=== PATIENT | male | born 1995 | race Hispanic/Latino ===

== ENCOUNTER 2021-06-12 03:37 | Emergency (ER) | payer SELFPAY ==
[2021-06-12 03:49] LABS: Urine Blood Negative (Negative); Urine Glucose Negative (Negative); Urine Protein Negative (Negative); Urine Specific Gravity <=1.005 (1.005-1.030)
[2021-06-12] MEDS ORDERED: NA CHLORIDE 0.9% 1,000 ML ONE (03:56)
[2021-06-12] MEDS ORDERED: ONDANSETRON 4 MG/2 ML VIAL ONE (03:57)
[2021-06-12 04:01] LABS: Absolute Lymphocytes (CBC) 2.1 K/uL (0.7-4.9); Hematocrit 42.3 % (39.6-49.0); Lymphocytes % 20.4 % (15.3-44.8); RBC Red Blood Cell Count 4.87 M/uL (4.33-5.43)
[2021-06-12 04:08] LABS: Barbiturates NEGATIVE (NEGATIVE); Benzodiazepines NEGATIVE (NEGATIVE); Cocaine NEGATIVE (NEGATIVE); METHAMPHETAM NEGATIVE (NEGATIVE); Methadone NEGATIVE (NEGATIVE); Opiates NEGATIVE (NEGATIVE); Phencyclidine NEGATIVE (NEGATIVE); THC Cannibis NEGATIVE (NEGATIVE)
[2021-06-12 04:12] LABS: Protime INR 1.27
[2021-06-12 04:47] LABS: ALT/SGPT 43 U/L (12-78); AST/SGOT 23 U/L (15-37); Albumin 4.1 g/dL (3.4-5.0); Alkaline Phosphatase 133 U/L (45-117); BUN Blood Urea Nitrogen 10 mg/dL (7-18); Bicarbonate 23 mmol/L (21-32); Bilirubin Total 0.3 mg/dL (0.2-1.0); Glucose Level 139 mg/dL (74-106); Potassium 3.5 mmol/L (3.5-5.1); Protein, Total 7.7 g/dL (6.4-8.2); Sodium Level 142 mmol/L (136-145)
[2021-06-12 04:48] LABS: Bilirubin Direct < 0.1 mg/dL (0-0.2)
--- NOTE | 2021-06-12 06:07 | EDPHYS ---
Physician Documentation [facility] Name: Riccardo Modi Jr Age: 26 yrs Sex: Male : 1995 Arrival Date: 06/12/2021 Time: 03:38 Bed 3 Private MD: ED Physician Quentin Lewis HPI: 06/12 03:50 This 26 yrs old Male presents to ER via EMS with complaints of Possible kdr Overdose. 03:50 The patient presents to the emergency department with a possible overdose, Reeks of kdr alcohol. Patient was found unresponsive in the regional driver seat of a vehicle with vomit throughout the entire car. He was in a gas station. There were no other persons around with familiarity as to how he got there or what it happened prior to that. EMS said that he was poorly responsive but did respond to sternal rub. Arrival in the ED, the patient was still unresponsive. He did respond to provocation by the nursing staff with questions but was minimally interactive. They were able to do catheter for urine with minimal discomfort to the patient.. Historical: - Allergies: 03:46 PENICILLINS; st1 - PMHx: 03:46 None; st1 - Immunization history:: Adult Immunizations not up to date, Flu vaccine is up to date. - Social history:: Smoking status: Patient/guardian denies using tobacco, Patient uses alcohol. ROS: 03:50 Constitutional: Unable to obtain secondary to altered mental status kdr 03:50 Unable to obtain ROS due to altered mental status. Exam: 03:50 Constitutional: This is a well developed, well nourished patient who is alert kdr responsive butt in no acute distress. Head/Face: Normocephalic, atraumatic. Eyes: Pupils equal round and reactive to light, extra-ocular motions intact. Lids and lashes normal. Conjunctiva and sclera are non-icteric and not injected. Cornea within normal limits. Periorbital areas with no swelling, redness, or edema. Neck: Trachea midline, no thyromegaly or masses palpated, and no cervical lymphadenopathy. Supple, full range of motion without nuchal rigidity, or vertebral point tenderness. No Meningismus. Chest/axilla: Normal chest wall appearance and motion. Nontender with no deformity. No lesions are appreciated. Cardiovascular: Regular rate and rhythm with a normal S1 and S2. No gallops, murmurs, or rubs. Normal PMI, no JVD. No pulse deficits. Respiratory: Lungs have equal breath sounds bilaterally, clear to auscultation and percussion. No rales, rhonchi or wheezes noted. No increased work of breathing, no retractions or nasal flaring. Abdomen/GI: Soft, non-tender, with normal bowel sounds. No distension or tympany. No guarding or rebound. No evidence of tenderness throughout. Back: No spinal tenderness. No costovertebral tenderness. Full range of motion. Skin: Warm, dry with normal turgor. Normal color with no rashes, no lesions, and no evidence of cellulitis. MS/ Extremity: Pulses equal, no cyanosis. Neurovascular intact. Full, normal range of motion. 05:24 ECG was reviewed by the Attending Physician. kdr Vital Signs: 03:44 BP 142 / 55; Pulse 60; Resp 16; Pulse Ox 100% on 2 lpm NC; Weight 72.57 kg; Height 5 st1 ft. 8 in. (172.72 cm); Pain 0/10; 03:45 BP 106 / 88; Pulse 73; Resp 16; Temp 98.4; Pulse Ox 99% on 2 lpm NC; st1 05:00 BP 124 / 92; Pulse 80; Resp 16; Pulse Ox 100% on R/A; st1 05:30 BP 127 / 77; Pulse 78; Resp 16; Pulse Ox 100% on R/A; st1 06:26 BP 111 / 91; Pulse 80; Resp 14; Pulse Ox 100% on R/A; st1 03:44 Body Mass Index 24.33 (72.57 kg, 172.72 cm) st1 MDM: 06:06 Patient medically screened. kdr 06/13 06:11 Data reviewed: vital signs, nurses notes, lab test result(s), radiologic studies. kdr Counseling: I had a detailed discussion with the patient and/or guardian regarding: the historical points, exam findings, and any diagnostic results supporting the discharge/admit diagnosis, lab results, radiology results, Patient eloped. 06/12 03:38 Order name: Acetaminophen; Complete Time: 05:13 cp 06/12 03:38 Order name: Basic Metabolic Panel; Complete Time: 05:13 cp 06/12 03:38 Order name: CBC with Diff; Complete Time: 04:16 cp 06/12 03:38 Order name: ETOH Level; Complete Time: 05:07 cp 06/12 03:38 Order name: Hepatic Function; Complete Time: 05:13 cp 06/12 03:38 Order name: PT-INR; Complete Time: 05:13 cp 06/12 03:38 Order name: Ptt, Activated; Complete Time: 05:13 cp 06/12 03:38 Order name: Salicylate; Complete Time: 05:13 cp 06/12 03:38 Order name: Urine Drug Screen; Complete Time: 05:13 cp 06/12 03:49 Order name: Urine Dipstick-Ancillary; Complete Time: 05:13 EDMS 06/12 03:55 Order name: Head C Spine Mpr Wo Con EDMS 06/12 03:58 Order name: Glucose, Ancillary Testing; Complete Time: 04:17 EDMS 06/12 03:38 Order name: EKG; Complete Time: 03:39 cp 06/12 03:38 Order name: EKG - Nurse/Tech; Complete Time: 03:49 cp 06/12 03:38 Order name: IV Saline Lock; Complete Time: 03:49 cp 06/12 03:38 Order name: Labs collected and sent; Complete Time: 03:49 cp 06/12 03:38 Order name: Suicide Screening ([place]); Complete Time: 03:49 cp 06/12 03:38 Order name: Urine Dipstick-Ancillary (obtain specimen); Complete Time: 03:49 cp EC/17 05:24 Rate is 61 beats/min. Rhythm is regular, Sinus Rhythm with No ectopy. QRS [place] is kdr Normal. GA interval is normal. QRS interval is normal. Clinical impression: NSR w/ Non-specific ST/T Changes. Administered Medications: 03:39 CANCELLED (Physician Discretion): NS 0.9% 1000 ml IV at 1 bolus Per protocol; 1000 mL cp bolus 03:56 Drug: NS 0.9% 1000 ml Route: IV; Rate: 1 bolus; Site: right antecubital; st1 05:39 Follow up: Response: No adverse reaction; IV Intake: 1000ml st1 06:25 Follow up: Response: No adverse reaction; IV Intake: 1000ml st1 03:56 Drug: Zofran (Ondansetron) 4 mg Route: IVP; Site: right antecubital; st1 05:39 Follow up: Response: No adverse reaction; Nausea is decreased st1 06:25 Follow up: Response: No adverse reaction st1 Disposition Summary: 06/12/21 06:06 Discharge Ordered Location: Home kdr Problem: new kdr Symptoms: have improved kdr Condition: Stable kdr Diagnosis - Alcohol abuse with intoxication kdr Followup: kdr - With: Private Physician - When: 2 - 3 days - Reason: If symptoms return, Further diagnostic work-up, Recheck today's complaints, Continuance of care, Re-evaluation by your physician Discharge Instructions: - Discharge Summary Sheet kdr - Alcohol Intoxication, [id number] kdr - Form - Return To Work bb Forms: - Medication Reconciliation Form kdr - Thank You Letter kdr Signatures: Dispatcher [employer] EDMS Quentin Lewis MD MD kdr Chuck Payne, CHARGE WEIGHER-C CHARGE WEIGHER-Cla1 Hari Delgadillo PA PA cp Tingle, Shellie, RN RN st1 Corrections: (The following items were deleted from the chart) 03:39 03:38 NS 0.9% 1000 ml IV at 1 bolus Per protocol; 1000 mL bolus ordered. cp cp 03:55 03:42 Head Brain Wo Cont+CT.RAD.BRZ ordered. EDMS EDMS 03:55 03:45 C Spine Wo Con+CT.RAD.BRZ ordered. EDMS EDMS
--- NOTE | 2021-06-12 06:07 | ER ---
Nurse's Notes [facility] Name: Riccardo Modi Jr Age: 26 yrs Sex: Male : 1995 Arrival Date: 06/12/2021 Time: 03:38 Bed 3 Private MD: Diagnosis: Alcohol abuse with intoxication Presentation: 06/12 03:44 Chief complaint: EMS states: The patient was found unresponsive in a gas station. st1 Coronavirus screen: Vaccine status: Patient reports receiving the 2nd dose of the covid vaccine. Moderna. Ebola Screen: No symptoms or risks identified at this time. Initial Sepsis Screen: Does the patient meet any 2 criteria? No. Patient's initial sepsis screen is negative. Does the patient have a suspected source of infection? No. Patient's initial sepsis screen is negative. Risk Assessment: Do you want to hurt yourself or someone else? Unable to obtain. Onset of symptoms was June 12, 2021. 03:44 Method Of Arrival: EMS: [facility] st1 03:44 Acuity: MEETA 3 st1 Triage Assessment: 03:46 General: Appears distressed, slender, unresponsive . Behavior is calm, drowsy, st1 listless. Pain: Denies pain. Musculoskeletal: No deficits noted. Historical: - Allergies: 03:46 PENICILLINS; st1 - PMHx: 03:46 None; st1 - Immunization history:: Adult Immunizations not up to date, Flu vaccine is up to date. - Social history:: Smoking status: Patient/guardian denies using tobacco, Patient uses alcohol. Screenin:49 Abuse screen: Denies threats or abuse. Nutritional screening: No deficits noted. st1 Tuberculosis screening: No symptoms or risk factors identified. Fall Risk None identified. No fall in past 12 months (0 pts). No secondary diagnosis (0 pts). IV access (20 points). Ambulatory Aid- None/Bed Rest/Nurse Assist (0 pts). Gait- Normal/Bed Rest/Wheelchair (0 pts) Mental Status- Overestimates/Forgets Limitations (15 pts.). Total To Fall Scale indicates Low Risk Score (25-44 pts). Assessment: 03:49 Reassessment: please see triage note. st1 Overdose: 03:50 [place] Suicide Severity Screening:. [place] Suicide Severity Screening: unable to st1 assess at this time. 03:50 [place] Suicide Severity Screening: "In the past month, have you actually had any st1 thoughts of killing yourself?" Patient responds "yes." Based off client's responses, additional C-SSRS screening questions required. unable to assess "In your lifetime, have you ever done anything, started to do anything, or prepared to do anything to end your life?" unable to assess. 05:42 [place] Suicide Severity Screening: "In the past month, have you wished you were st1 or wished you could go to sleep and not wake up?" Patient responds "no." Patient responds "yes." Based off client's responses, additional C-SSRS screening questions required. "In the past month, have you actually had any thoughts of killing yourself?" Patient responds "no." "In your lifetime, have you ever done anything, started to do anything, or prepared to do anything to end your life?" Patient responds "no.". Vital Signs: 03:44 BP 142 / 55; Pulse 60; Resp 16; Pulse Ox 100% on 2 lpm NC; Weight 72.57 kg; Height 5 st1 ft. 8 in. (172.72 cm); Pain 0/10; 03:45 BP 106 / 88; Pulse 73; Resp 16; Temp 98.4; Pulse Ox 99% on 2 lpm NC; st1 05:00 BP 124 / 92; Pulse 80; Resp 16; Pulse Ox 100% on R/A; st1 05:30 BP 127 / 77; Pulse 78; Resp 16; Pulse Ox 100% on R/A; st1 06:26 BP 111 / 91; Pulse 80; Resp 14; Pulse Ox 100% on R/A; st1 03:44 Body Mass Index 24.33 (72.57 kg, 172.72 cm) st1 ED Course: 03:38 Patient arrived in ED. wm 03:44 Mary Grace Morales RN is Primary Nurse. st1 03:44 Quentin Lewis MD is Attending Physician. kdr 03:46 Triage completed. st1 03:49 Arm band placed on right wrist. EKG completed in triage. Results shown to MD. EKG st1 completed in triage. Results shown to MD. 03:49 Acetaminophen Sent. as6 03:49 Basic Metabolic Panel Sent. as6 03:49 CBC with Diff Sent. as6 03:49 ETOH Level Sent. as6 03:49 Hepatic Function Sent. as6 03:49 PT-INR Sent. as6 03:49 Ptt, Activated Sent. as6 03:49 Salicylate Sent. as6 03:49 Urine Drug Screen Sent. as6 03:51 Patient has correct armband on for positive identification. Bed in low position. Call st1 light in reach. Side rails up X2. quality assurance monitor chassis on. Pulse ox on. NIBP on. 03:51 Inserted saline lock: 18 gauge in right antecubital area, using aseptic technique. st1 03:51 Maintain EMS IV. Dressing intact. Good blood return noted. Site clean \\T\\ dry. Gauge \\T\\ st 1 site: 18 ga. left ac. 04:26 Head C Spine Mpr Wo Con In Process Unspecified. EDMS 05:42 No provider procedures requiring assistance completed. st1 06:28 IV discontinued, intact, bleeding controlled, No redness/swelling at site. Pressure st1 dressing applied. Administered Medications: 03:39 CANCELLED (Physician Discretion): NS 0.9% 1000 ml IV at 1 bolus Per protocol; 1000 mL cp bolus 03:56 Drug: NS 0.9% 1000 ml Route: IV; Rate: 1 bolus; Site: right antecubital; st1 05:39 Follow up: Response: No adverse reaction; IV Intake: 1000ml st1 06:25 Follow up: Response: No adverse reaction; IV Intake: 1000ml st1 03:56 Drug: Zofran (Ondansetron) 4 mg Route: IVP; Site: right antecubital; st1 05:39 Follow up: Response: No adverse reaction; Nausea is decreased st1 06:25 Follow up: Response: No adverse reaction st1 Intake: 05:39 IV: 1000ml; Total: 1000ml. st1 06:25 IV: 1000ml; Total: 2000ml. st1 Outcome: 06:06 Discharge ordered by . kdr 06:27 Discharged to home ambulatory, with family. st1 06:27 Condition: good 06:27 Discharge instructions given to patient, family, Instructed on discharge instructions, follow up and referral plans. No drinking alcohol 06:28 Patient left the ED. st1 Signatures: Dispatcher [employer] EDMI Quentin Lewis MD MD kdr Marsh, Wendy wm Slawson, [place], RN RN as6 Mary Grace Morales RN RN st1 Hari Delgadillo cp
[2021-06-12 06:36] VITALS: TEMP 98.4
[2021-06-12 06:37] VITALS: O2SAT 100
[2021-06-12 06:39] VITALS: BP 111/91
--- NOTE | 2021-06-12 14:45 | RAD REPORT ---
EXAM DESCRIPTION: CT - Head C Spine Mpr Wo Con - 06/12/2021 6:05 am CLINICAL HISTORY: 26 years Male MENTAL STATUS CHANGE, found on ground at gas station TECHNIQUE: Multiple axial CT images of the brain and cervical spine were performed followed by sagit nay and coronal reconstructed images. The CT study is performed according to ALARA (as low as reasona lesly achievable) or ALARA/IMAGE GENTLY, with automatic adjustment of mA and/or kV according to patient size. Performed on: 06/12/2021 at 4:02 AM COMPARISON: None. FINDINGS: CT HEAD: There is no evidence of mass, acute mass effect or midline shift. There are no acute extra-axial flui d collections. There is no evidence of acute intracranial hemorrhage. The cerebral sulci and ventricles are normal in size and configuration. There are no focal abnormal areas of increased or decreased attenuation. There is mild mucosal thickening of the paranasal sinuses. The mastoid air cells are clear. The orbital contents are grossly unremarkable. No acute osseous abnormalities are identified. No focal soft tissue abnormalities are identified. CT CERVICAL SPINE: The cervical vertebrae are normal in height. There is normal alignment of the vertebrae. The disc spa kim are well preserved in height. Bone mineralization is normal. The atlanto-axial articulation is preserved and the odontoid process is intact. There is normal alignment of the facet joints on the parasagittal images. There are no significant de generative changes of the cervical spine. There is no evidence of acute fracture or subluxation. There is no significant canal stenosis. Ther e is no significant neural foraminal stenosis. The paravertebral and paraspinal soft tissues are un remarkable. The lung apices are clear. IMPRESSION: CT HEAD: 1. There is no evidence of acute intracranial pathology. CT CERVICAL SPINE: 1. No evidence of acute cervical spine injury. Electronically signed by: Camila Odom DO 06/12/2021 5:37 AM CDT Due to temporary technical issues with the PACS/Fluency reporting system, reports are being signed by the in house radiologists without review as a courtesy to insure prompt reporting. The interpreting radiologist is fully responsible for the content of the report.
--- NOTE | 2021-06-16 08:31 | EKG ---
Test Date: 2021-06-12 Test Time: 03:38:45 Clinical Specialist: RUSTY MEASUREMENT RESULTS: Intervals: Rate: 61 AR: 166 QRSD: 92 QT: 386 QTc: 388 [place]: P: 41 AR: 166 QRS: 69 T: 51 INTERPRETIVE STATEMENTS: Normal sinus rhythm Minimal voltage criteria for LVH, may be normal variant Early repolarization Borderline ECG No previous ECG available for comparison Electronically Signed On 06-16-21 08:23:52 CDT by Levi Armijo
== END 2021-06-12 06:28 | disposition home or self-care (01) ==
LOC: ER 03:37
DX: F10.129 Alcohol abuse with intoxication, unspecified (principal); Z88.0 Allergy status to penicillin
CPT/HCPCS: 36415; 70450; 72125; 80048; 80076; 80307; 80320; 80329; 81003; 82947; 85025; 85610; 85730; 93005; 96374; 99284; J2405; J7030